=== PATIENT | female | born 1995 | race Caucasian/White ===

== ENCOUNTER 2018-01-10 19:36 | Outpatient (CLI) | payer MEDICAID ==
[2018-01-10 20:53] VITALS: BP 115/64
== END 2018-01-10 21:03 | disposition home or self-care (01) ==
LOC: TRG 19:36
PROVIDERS: ATTEND Obstetrics & Gynecology
DX: O47.1 False labor at or after 37 completed weeks of gestation (principal); Z3A.35 35 weeks gestation of pregnancy
CPT/HCPCS: 59025